=== PATIENT | female | born 1995 | race Hispanic/Latino ===

== ENCOUNTER 2023-01-04 07:30 | Inpatient (IN) | payer MEDICAID, OTHER ==
[2023-01-05 11:06] LABS: Hemoglobin 12.1 g/dL (12.0-15.5); Platelet Count 235 10x3/uL (150-450)
[2023-01-05 11:28] LABS: HBSAg Index 0.16 S/CO (0-0.99); Hep B Surf Ag Non-Reactive S/CO (NonReactive)
[2023-01-05 11:30] LABS: Syphilis Antibody Nonreactive (Nonreactive); Syphilis Antibody Index 0.05 S/CO (<1.00 Non-Reactive)
[2023-01-05 11:40] LABS: SARS-CoV-2 NAA Rapid Test Not Detected (NotDetected)
[2023-01-06] MEDS ORDERED: NS w/ Oxytocin 30 units 500 ML IV SCH ×2 (10:41→15:28)
[2023-01-06] MEDS ORDERED: Lactated Ringer's 1,000 ML IV SCH (10:41)
[2023-01-06] MEDS ORDERED: Bicitra 30 ML UDCUP PO PRN (10:41)
[2023-01-06] MEDS ORDERED: Ondansetron PF 4 MG/2 ML Vial IVP PRN ×3 (10:41→15:28)
[2023-01-06] MEDS ORDERED: hydrALAZINE 20 MG/ML VIAL SLOW IVP PRN ×2 (10:41→15:28)
[2023-01-06] MEDS ORDERED: Promethazine HCl 25 MG/ML VIAL IM PRN ×2 (10:41→13:00)
[2023-01-06] MEDS ORDERED: Famotidine/PF 20 mg/2ml Vial SLOW IVP PRN (10:41)
[2023-01-06] MEDS ORDERED: CEFAZOLIN 2 GM in Sodium Chloride 0.9% 100 ML IVPB SCH (10:41)
[2023-01-06] MEDS ORDERED: Morphine PF 10 MG/10 ML VIAL ONE (11:14)
[2023-01-06] MEDS ORDERED: Phenylephrine 40 MG/NS 250 ML 250 ML ONE (11:15)
[2023-01-06] MEDS ORDERED: Ketorolac Tromethamine 30 MG/ML VIAL ONE (11:15)
[2023-01-06] MEDS ORDERED: Oxytocin 10 UNITS/ML VIAL ONE ×2 (11:15→12:30)
[2023-01-06 11:16] VITALS: BMI 28.0
[2023-01-06] MEDS ORDERED: ePHEDrine Sulfate 50 MG/10 ML VIAL ONE (12:35)
[2023-01-06] MEDS ORDERED: Communication Order-Pharmacy FS SCH (13:00)
[2023-01-06] MEDS ORDERED: diphenhydrAMINE 50 MG/ML VIAL IVP PRN (13:00)
[2023-01-06] MEDS ORDERED: Ketorolac Tromethamine 30 MG/ML VIAL IVP SCH (13:00)
[2023-01-06] MEDS ORDERED: Fentanyl 100 MCG/2 ML VIAL SLOW IVP PRN (13:00)
[2023-01-06] MEDS ORDERED: Moisturizing Cream (Eucerin) 113 GM JAR TOP PRN (13:00)
[2023-01-06] MEDS ORDERED: Meperidine HCl/PF 25 MG/ML VIAL SLOW IVP PRN (13:00)
[2023-01-06] MEDS ORDERED: Ketorolac Tromethamine 30 MG/ML VIAL IVP PRN (13:00)
[2023-01-06] MEDS ORDERED: Promethazine HCl 25 MG SUPP PR PRN (13:00)
[2023-01-06] MEDS ORDERED: Naloxone HCl 0.4 mg/ml Vial IVP PRN ×2 (13:00)
[2023-01-06] MEDS ORDERED: Ondansetron HCl/PF 4 MG/2 ML Vial IVP PRN (13:00)
[2023-01-06] MEDS ORDERED: HYDROmorphone 2 MG/ML VIAL SLOW IVP PRN (13:00)
[2023-01-06] MEDS ORDERED: Simethicone Chewable 80 MG TAB PO PRN (15:28)
[2023-01-06] MEDS ORDERED: Bisacodyl 10 MG SUPP PR PRN (15:28)
[2023-01-06] MEDS ORDERED: diphenhydrAMINE 25 MG CAP PO PRN (15:28)
[2023-01-06] MEDS ORDERED: Lanolin Ointment 7 GM TUBE TOP PRN (15:28)
[2023-01-06] MEDS ORDERED: Boostrix 0.5 ML (Tdap) VIAL (>/=7 yrs of age) IM ONE (15:28)
[2023-01-07] MEDS ORDERED: HYDROcodone/Acetaminophen 5/325 mg Tablet PO PRN (01:00)
[2023-01-07 03:40] LABS: Hemoglobin 10.1 g/dL (12.0-15.5); Mean Corpuscular HGB CONC 32.9 g/dL (32.0-36.0); Mean Corpuscular Hemoglobin 28.8 pg (27.0-33.0); Mean Corpuscular Volume 87.5 fl (81.6-98.3); Mean Platelet Volume 9.4 fl (7.4-10.4); Platelet Count 183 10x3/uL (150-450); RBC Distribution Width 15.5 % (11.5-14.5); Red Blood Cell (RBC) Count 3.51 10x6/uL (3.90-5.03); White Blood Cell (WBC) Count 7.1 10x3/uL (3.5-10.5)
[2023-01-07] MEDS: Docusate 100 MG CAP PO SCH ×3 (07:10→21:29)
[2023-01-07] MEDS: Ferrous Sulfate 325 MG TAB PO SCH ×3 (07:10→21:42)
[2023-01-07] MEDS: HYDROcodone/Acetaminophen 5/325 mg Tablet PO PRN ×2 (08:39→12:10)
[2023-01-07] MEDS: Prenatal Vitamin 1 TAB PO SCH (08:39)
[2023-01-07] MEDS: Ibuprofen 800 MG TAB PO SCH ×2 (12:10→21:28)
[2023-01-07] MEDS: Naloxone HCl 0.4 mg/ml Vial IV PRN ×2 (14:06→14:25)
[2023-01-08] MEDS: HYDROcodone/Acetaminophen 5/325 mg Tablet PO PRN ×3 (00:10→17:18)
[2023-01-08] MEDS: Ibuprofen 800 MG TAB PO SCH ×2 (05:51→14:02)
[2023-01-08] MEDS: Ferrous Sulfate 325 MG TAB PO SCH (07:09)
[2023-01-08] MEDS: Docusate 100 MG CAP PO SCH (08:08)
[2023-01-08] MEDS: Prenatal Vitamin 1 TAB PO SCH (08:09)
[2023-01-08 08:16] VITALS: BP 102/51; TEMP 98.4
== END 2023-01-08 18:25 | disposition home or self-care (01) | DRG 785 ==
LOC: CSHLD 01-06 10:20 → CSHPP 01-06 15:00
PROVIDERS: ADMIT Obstetrics & Gynecology; ATTEND Obstetrics & Gynecology
PROC: 10D00Z1 Extraction of Products of Conception, Low, Open Approach (ICD-10-PCS; principal; 2023-01-06)
PROC: 0UT70ZZ Resection of Bilateral Fallopian Tubes, Open Approach (ICD-10-PCS; 2023-01-06)
DX: O34.211 Maternal care for low transverse scar from previous cesarean delivery (principal); Z20.822 Contact with and (suspected) exposure to COVID-19; Z3A.39 39 weeks gestation of pregnancy; Z37.0 Single live birth; O32.1XX0 Maternal care for breech presentation, not applicable or unspecified; Z80.9 Family history of malignant neoplasm, unspecified; O99.62 Diseases of the digestive system complicating childbirth; K66.0 Peritoneal adhesions (postprocedural) (postinfection); R33.9 Retention of urine, unspecified; O99.893 Other specified diseases and conditions complicating puerperium
CPT/HCPCS: 36415; 51702; 85014; 85018; 85027; 85049; 86780; 86850; 86900; 86901; 87340; 88302; 88341; 88342; J1885; J2274; J2310; J2590; J3490; S0028; U0002

== ENCOUNTER 2025-09-12 00:47 | Emergency (ER) | payer SELFPAY ==
[2025-09-12] MEDS ORDERED: Prochlorperazine 10 MG/2 ML VIAL ONE (01:11)
[2025-09-12] MEDS ORDERED: diphenhydrAMINE 25 MG CAP ONE (01:12)
[2025-09-12 01:38] LABS: Glucose, Urine (Dipstick) Normal (Negative); Leukocyte Negative (Negative); Pregnancy Test - Urine (BHCG) Negative (Negative); Pregu Control Background? CLEAR/WHITE (CLR/WHITE); Pregu Control Bar Appear? YES (CONTROL BAR); Protein, Urine (Dipstick) Negative (Neg-Trace); Specific Gravity, Urine 1.010 (1.005-1.030)
[2025-09-12 01:44] LABS: Bacteria/HPF None Seen HPF (None Seen); CAUTI Indications for Culture Pelvic or flank pain; RBC/HPF 0-3 HPF (0-3); WBC/HPF None Seen HPF (0-3)
[2025-09-12 01:45] LABS: Urine Culture Reflex No No
== END 2025-09-12 02:05 | disposition home or self-care (01) ==
LOC: CSHERS 00:47
DX: R51.9 Headache, unspecified (principal)
CPT/HCPCS: 70450; 81001; 81025; 96372; J0780